=== PATIENT | female | born 1945 | race Caucasian/White ===

== ENCOUNTER 2017-10-15 09:29 | Emergency (ER) | payer MEDICARE ==
--- NOTE | 2017-10-15 10:55 | RAD ---
LEFT ANKLE 3 VIEWS: Date: 10/15/17 INDICATION: Post-traumatic pain. FINDINGS: Plate and screw fixation in distal fibula seen. There is overlying soft tissue swelling, laterally. N o abnormal widening of the ankle mortise. No acute fracture visualized. No obvious perihardware lucen cy of significance. Calcaneal enthesophyte formation seen. IMPRESSION: 1. Soft tissue swelling, laterally. Correlate clinically. 2. Postoperative fixation of distal left fibula. 3. No acute fracture is seen. POS: JESSICA
== END 2017-10-15 10:30 | disposition home or self-care (01) ==
LOC: SCSER 09:29
DX: S93.402A Sprain of unspecified ligament of left ankle, initial encounter; E03.9 Hypothyroidism, unspecified; K21.9 Gastro-esophageal reflux disease without esophagitis; F17.200 Nicotine dependence, unspecified, uncomplicated; Z79.899 Other long term (current) drug therapy; W10.9XXA Fall (on) (from) unspecified stairs and steps, initial encounter

== ENCOUNTER 2018-02-01 07:15 | Emergency (ER) | payer MEDICARE ==
[2018-02-01] MEDS ORDERED: Ondansetron HCl/PF 4 MG/2 ML Vial ONE (07:26)
[2018-02-01] MEDS ORDERED: Morphine 4 MG/ML Carpuject ONE ×2 (07:37→07:58)
[2018-02-01 08:02] LABS: #Basophils 0.1 thou/uL (0.0-0.2); #Eosinphils 0.2 thou/uL (0.0-0.7); #Lymphocytes 2.9 thou/uL (1.20-3.40); #Monocytes 0.7 thou/uL (0.11-0.59); #Neutrophils 4.7 thou/uL (1.40-6.50); %Basophils 1.1 % (0.0-1.0); %Eosinophils 1.9 % (0.0-10.0); %Lymphocytes 33.7 % (21.0-51.0); %Monocytes 7.7 % (0.0-10.0); %Neutrophils 55.7 % (42.0-75.0); Hemoglobin 15.2 g/dL (12.0-16.0); INR-International Normal Ratio 0.9; Mean Corpuscular HGB CONC 34.9 g/dL (32.0-36.0); Mean Corpuscular Hemoglobin 27.7 pg (27.0-31.0); Mean Corpuscular Volume 79.5 fL (78.0-98.0); Mean Platelet Volume 7.1 fL (7.4-10.4); Platelet Count 230 thou/uL (130-400); Prothrombin Time 12.3 SEC (12.0-14.7); RBC Distribution Width 10.8 % (11.5-14.5); Red Blood Cell (RBC) Count 5.49 mill/uL (4.20-5.40); White Blood Cell (WBC) Count 8.5 thou/uL (4.8-10.8)
[2018-02-01 08:12] LABS: ALT (SGPT) 17 U/L (8-55); AST (SGOT) 16 U/L (5-34); Albumin 4.3 g/dL (3.4-4.8); Alkaline Phosphatase 119 U/L (40-150); Anion Gap 15 mmol/L (10-20); BUN (Urea Nitrogen) 17 mg/dL (9.8-20.1); Bilirubin, Direct 0.2 mg/dL (0.1-0.3); Bilirubin, Total 0.6 mg/dL (0.2-1.2); Calc. Creatinine Clearance 0 mL/min (70-130); Carbon Dioxide 23 mmol/L (23-31); Chloride 107 mmol/L (98-107); Estimated GFR-MDRD 64; Glucose 148 mg/dL (83-110); Potassium 3.8 mmol/L (3.5-5.1); Protein, Total 6.8 g/dL (6.0-8.3); Sodium 141 mmol/L (136-145)
== END 2018-02-01 09:23 | disposition short-term general hospital (02) ==
LOC: SCSER 07:15
DX: R10.31 Right lower quadrant pain (principal); R10.32 Left lower quadrant pain; E78.5 Hyperlipidemia, unspecified; E03.9 Hypothyroidism, unspecified; K21.9 Gastro-esophageal reflux disease without esophagitis
CPT/HCPCS: 80048; 80076; 83605; 85025; 85610; 86850; 86900; 86901; 93005; J1170; J2270; J2405

== ENCOUNTER 2018-02-01 09:42 | Emergency (ER) | payer MEDICARE ==
[2018-02-01 10:48] LABS: Troponin I Less than 0.010 ng/mL (< 0.028)
--- NOTE | 2018-02-01 11:17 | CT ---
CT ABDOMEN AND PELVIS WITH CONTRAST: HISTORY: Abdominal pain that radiates to the hip and back. COMPARISON: None. FINDINGS: Low-grade atelectasis in the lung bases. No pericardial effusion. There is mild right-sided hydroureteral nephrosis due to a distal partially obstructing calculus josseline uring 2 x 2 mm 2 cm from the ureterovesicular junction. There is very mild delayed enhancement of th e right kidney relative to the left with perinephric stranding. There is a punctate calculus superior right renal collecting system. No left-sided renal collecting system calculi are appreciated. Multiple hypodensities are present of both kidneys most suggestive o f cysts. There is moderate diverticular disease of the sigmoid colon without active current inflammation. The appendix is visualized and is normal. Aortoiliac contour is nonaneurysmal. The spleen, pancreas, and liver are unremarkable. Prior cholec ystectomy. IMPRESSION: 1. A 2 x 2 mm partially obstructive calculus right distal ureter 2 cm proximal to the ureterovesicul ar junction. There is mild right-sided hydroureteral nephrosis as well as delayed enhancement and ri ght-sided perinephric stranding. 2. Punctate calculus remaining in the right superior renal collecting system. No left-sided renal c alculi are appreciated. POS: EULOGIO
[2018-02-01] MEDS ORDERED: ISOVUE-370 76%-LOCM 1 ML ONE (11:22)
[2018-02-01] MEDS ORDERED: Ketorolac Tromethamine 30 MG/ML VIAL ONE (12:16)
[2018-02-01 13:19] LABS: Bilirubin Negative (Negative); Blood, Urine Large (Negative); Clarity CLEAR (Clear); Glucose, Urine (Dipstick) Negative (Negative); Leukocyte Negative (Negative); Nitrite Negative (Negative); Protein, Urine (Dipstick) Negative (Neg-Trace); pH, Urine 6.5 (5.0-9.0)
[2018-02-01 13:22] LABS: Bacteria/HPF None Seen HPF (None Seen); Hyaline Casts/LPF 0-3 HYALINE CAST LPF (0-3 Hyaline); Pathc Cast-AUWi Flag 0.14 (0-2.49); RBC/HPF GREATER THAN 50-TNTC HPF (0-3); Squamous Epithelial None Seen HPF (0-3); WBC/HPF 0-3 HPF (0-3)
[2018-02-01 13:23] LABS: Specific Gravity, Urine 1.051 (1.002-1.036)
== END 2018-02-01 13:40 | disposition home or self-care (01) ==
LOC: ERS 09:42
DX: N13.2 Hydronephrosis with renal and ureteral calculous obstruction (principal); K21.9 Gastro-esophageal reflux disease without esophagitis; F32.9 Major depressive disorder, single episode, unspecified; F17.210 Nicotine dependence, cigarettes, uncomplicated; Z79.899 Other long term (current) drug therapy
CPT/HCPCS: 36415; 74177; 80048; 80076; 81003; 81015; 83605; 83690; 84484; 85025; 85610; 86850; 86900; 86901; 93005; 96361; 96374; 96375; J1170; J1885; J2270; J2405

== ENCOUNTER 2021-05-15 14:23 | Inpatient (IN) | payer MEDICARE ==
[2021-05-15] MEDS ORDERED: Dexamethasone 4 mg/ml Vial ONE (16:08)
[2021-05-15] MEDS ORDERED: Fentanyl 100 MCG/2 ML VIAL ONE ×2 (16:08→18:46)
[2021-05-15] MEDS ORDERED: Diazepam 10 MG/2 ML SYRINGE ONE (16:09)
[2021-05-15 16:14] LABS: #Eosinphils 0.2 thou/uL (0.0-0.7); #Lymphocytes 1.8 thou/uL (1.20-3.40); #Monocytes 0.6 thou/uL (0.11-0.59); #Neutrophils 5.2 thou/uL (1.40-6.50); %Basophils 0.6 % (0.0-1.0); %Eosinophils 2.3 % (0.0-10.0); %Lymphocytes 23.3 % (21.0-51.0); %Monocytes 7.2 % (0.0-10.0); %Neutrophils 66.6 % (42.0-75.0); Hemoglobin 15.5 g/dL (12.0-16.0); Mean Corpuscular HGB CONC 34.8 g/dL (32.0-36.0); Mean Corpuscular Hemoglobin 29.9 pg (27.0-31.0); Mean Corpuscular Volume 85.8 fL (78.0-98.0); Mean Platelet Volume 7.2 fL (7.4-10.4); Platelet Count 271 thou/uL (130-400); RBC Distribution Width 11.6 % (11.5-14.5); White Blood Cell (WBC) Count 7.9 thou/uL (4.8-10.8)
[2021-05-15 16:33] LABS: ALT (SGPT) 14 U/L (8-55); AST (SGOT) 16 U/L (5-34); Albumin 4.2 g/dL (3.4-4.8); Alkaline Phosphatase 131 U/L (40-110); Anion Gap 14 mmol/L (10-20); BUN (Urea Nitrogen) 15 mg/dL (9.8-20.1); Bilirubin, Total 0.9 mg/dL (0.2-1.2); Calc. Creatinine Clearance 0 mL/min (70-130); Calcium 9.8 mg/dL (7.8-10.44); Carbon Dioxide 26 mmol/L (23-31); Chloride 104 mmol/L (98-107); Glucose 93 mg/dL (83-110); Potassium 3.9 mmol/L (3.5-5.1); Protein, Total 7.2 g/dL (5.8-8.1); Sodium 140 mmol/L (136-145)
[2021-05-15 17:06] LABS: Bilirubin Negative (Negative); Blood, Urine 2+ (Negative); Clarity Clear (Clear); Glucose, Urine (Dipstick) Normal (Negative); Ketone, Urine Negative (Negative); Leukocyte 75 Leu/uL (Negative); Nitrite Negative (Negative); Protein, Urine (Dipstick) Negative (Neg-Trace); Squamous Epithelial 0-3 HPF (0-3); Urobilinogen Normal mg/dL (Less than 2); pH, Urine 5.5 (5.0-9.0)
[2021-05-15 17:08] LABS: Bacteria/HPF 1+ HPF (None Seen)
[2021-05-15] MEDS ORDERED: cefTRIAXone\\ROCEPHIN 2 GM VIAL ONE (17:44)
[2021-05-15] MEDS ORDERED: HYDROcodone/Acetaminophen 5/325 mg Tablet ONE (18:46)
[2021-05-15 21:20] VITALS: BMI 32.7
[2021-05-15] MEDS ORDERED: Bisacodyl 5 MG TAB PO PRN (23:27)
[2021-05-15] MEDS ORDERED: Acetaminophen 325 MG TAB PO PRN (23:27)
[2021-05-15] MEDS ORDERED: Ondansetron ODT 4 MG TAB PO PRN (23:37)
[2021-05-16] MEDS: Fentanyl 100 MCG/2 ML VIAL SLOW IVP PRN ×5 (02:25→18:55)
[2021-05-16] MEDS: Levothyroxine Sodium 50 MCG TAB PO SCH (05:43)
[2021-05-16 06:34] LABS: #Lymphocytes 0.7 thou/uL (1.20-3.40); #Monocytes 0.4 thou/uL (0.11-0.59); #Neutrophils 5.8 thou/uL (1.40-6.50); %Basophils 0.1 % (0.0-1.0); %Eosinophils 0.1 % (0.0-10.0); %Lymphocytes 10.4 % (21.0-51.0); %Neutrophils 84.4 % (42.0-75.0); Hemoglobin 13.5 g/dL (12.0-16.0); Mean Corpuscular HGB CONC 33.8 g/dL (32.0-36.0); Mean Corpuscular Hemoglobin 29.3 pg (27.0-31.0); Mean Corpuscular Volume 86.6 fL (78.0-98.0); Mean Platelet Volume 7.6 fL (7.4-10.4); Platelet Count 256 thou/uL (130-400); RBC Distribution Width 11.5 % (11.5-14.5); White Blood Cell (WBC) Count 6.9 thou/uL (4.8-10.8)
[2021-05-16 07:00] LABS: Anion Gap 12 mmol/L (10-20); BUN (Urea Nitrogen) 19 mg/dL (9.8-20.1); Calc. Creatinine Clearance 78 mL/min (70-130); Calcium 9.4 mg/dL (7.8-10.44); Carbon Dioxide 25 mmol/L (23-31); Chloride 108 mmol/L (98-107); Glucose 112 mg/dL (83-110); Potassium 4.8 mmol/L (3.5-5.1); Sodium 140 mmol/L (136-145)
[2021-05-16] MEDS: FLUoxetine HCl 20 MG CAP PO SCH (08:38)
[2021-05-16] MEDS: HYDROcodone/Acetaminophen 5/325 mg Tablet PO PRN ×2 (08:39→20:01)
[2021-05-16] MEDS: Ascorbic Acid 500 mg Chewable Tablet PO SCH (08:39)
[2021-05-16] MEDS: Enoxaparin Sodium 40 MG/0.4 ML SYRINGE SC SCH (08:40)
[2021-05-16] MEDS: Cholecalciferol 1,000 UNITS (25 MCG) TAB PO SCH (08:40)
[2021-05-16] MEDS: Nitrofurantoin Monohyd/M-Cryst 100 MG CAP PO SCH ×2 (09:55→20:01)
[2021-05-16 15:42] LABS: SARS-CoV-2 PCR by NAA Not Detected (NotDetected)
[2021-05-16] MEDS: Cyclobenzaprine 10 MG TAB PO PRN (16:54)
[2021-05-17] MEDS: Fentanyl 100 MCG/2 ML VIAL SLOW IVP PRN ×2 (02:15→08:16)
[2021-05-17] MEDS: Cyclobenzaprine 10 MG TAB PO PRN ×2 (06:28→11:21)
[2021-05-17] MEDS: Levothyroxine Sodium 50 MCG TAB PO SCH (06:28)
[2021-05-17] MEDS: Cholecalciferol 1,000 UNITS (25 MCG) TAB PO SCH (08:11)
[2021-05-17] MEDS: Ascorbic Acid 500 mg Chewable Tablet PO SCH (08:11)
[2021-05-17] MEDS: FLUoxetine HCl 20 MG CAP PO SCH (08:11)
[2021-05-17] MEDS: Nitrofurantoin Monohyd/M-Cryst 100 MG CAP PO SCH (08:12)
[2021-05-17] MEDS: Enoxaparin Sodium 40 MG/0.4 ML SYRINGE SC SCH (08:12)
[2021-05-17 09:13] VITALS: BP 145/84; TEMP 98.1
== END 2021-05-17 11:49 | disposition home or self-care (01) | DRG 552 ==
LOC: ERS 14:23 → SUATTDRO 14:23 → T4-A 18:26 → OBSVTOIN 05-17 10:21
PROVIDERS: ADMIT Hospitalist; ATTEND Hospitalist
DX: S32.029A Unspecified fracture of second lumbar vertebra, initial encounter for closed fracture (principal); N39.0 Urinary tract infection, site not specified; G47.33 Obstructive sleep apnea (adult) (pediatric); E03.9 Hypothyroidism, unspecified; Z20.822 Contact with and (suspected) exposure to COVID-19; W18.30XA Fall on same level, unspecified, initial encounter; Z88.5 Allergy status to narcotic agent; Z79.899 Other long term (current) drug therapy; Z79.890 Hormone replacement therapy
CPT/HCPCS: 36415; 72148; 80048; 80053; 81003; 81015; 85025; 87086; 94760; 96365; 96372; 96375; 96376; G0378; J0696; J1100; J1650; J3010; J3360; U0003; U0005